=== PATIENT | male | born 1960 | race Caucasian/White ===

== ENCOUNTER 2016-04-10 21:56 | Observation (INO) | payer OTHER ==
[~2016-04-10] VITALS: Ht 157.5 cm; Wt 65.0 kg
[2016-04-10 21:58] VITALS: BP 131/66; PULSE 70; RESP 16; TEMP 98.8; O2SAT 98
[2016-04-10] MEDS ORDERED: SODIUM CHLOR 0.9% 1000 ML INJ 1,000 ML IV SCH (22:10)
[2016-04-10] MEDS ORDERED: ONDANSETRON HCL 4 MG/2 ML VIAL IVP ONE (22:15)
[2016-04-10] MEDS ORDERED: SODIUM CHLORIDE 0.9% FLUSH 5 ML FLUSH IVF PRN (22:15)
[2016-04-10 22:37] LABS: AUTOMATED NEUTROPHIL # 4.1 TH/MM3 (1.8-7.7); BASOPHIL % 0.3 % (0.0-2.0); EOSINOPHIL % 0.4 % (0.0-4.0); HEMATOCRIT 37.8 % (39.0-51.0); HEMO FLAGS DIFF FINAL; LYMPH % 25.2 % (9.0-44.0); LYMPHOCYTE # 1.8 TH/MM3 (1.0-4.8); MEAN CELL VOLUME 99.4 FL (80.0-100.0); MEAN CORPUSCULAR HEMOGLOBIN 33.9 PG (27.0-34.0); MEAN CORPUSCULAR HGB CONC 34.1 % (32.0-36.0); MONO % 16.1 % (0.0-8.0); PLATELET COUNT 155 TH/MM3 (150-450); RED BLOOD COUNT 3.81 MIL/MM3 (4.50-5.90); RED CELL DISTRIBUTION WIDTH 14.7 % (11.6-17.2)
--- NOTE | 2016-04-10 22:50 | PD ---
HPI Chief Complaint: Fall Time Seen by Provider: 22:10 Travel History International Travel<30 days: No Contact w/Intl Traveler<30days: No Traveled to known affect area: No History of Present Illness HPI 56-year-old male presents to the emergency department from home by EMS transport with C-spine immobilization after a slip and fall while working on Thursday on top of a roof. Patient fell on top of the roof and did not fall off of the roof. Patient states injury occurred approximately 8 AM on Thursday morning. Patient was able to work the rest the day and was ambulatory with some neck and low back pain. Patient states that he was able to perform his activities of daily living on Thursday but upon awakening on Thursday noticed that he had too much pain to move around. Patient has been bedbound since Thursday. Patient is been taking [id number] ibuprofen for pain associated with inflammation. Son has been rubbing BenGay onto his back. Patient's had normal urine output but has not been able to get up out of bed to go to the bathroom to have a bowel movement. Patient has had no bowel incontinence. Patient does note that intermittently he's had some tingling into the thumb and index finger of both hands. Patient also notes that he has no numbness tingling or weakness into his lower extremities but does have some pain radiating into his lower extremities. Patient denies any previous history of neck or back injury. Patient has no chronic medical conditions and takes no prescription medications on a regular basis. Patient does admit to tobacco use and occasionally drinks alcohol on the weekends. Patient states he does not believe he had loss of consciousness has had no ongoing headache no visual disturbance no change in mentation or difficulty with speech or swallowing has been taking oral hydration and eating well no chest pain no rib pain no shortness of breath no abdominal pain no pelvic pain. Patient rates neck pain and back pain with attempted movement 10 over 10 in intensity which is now 6/10 in intensity after receiving morphine sulfate 2 mg IV en route by EMS. [facility] Past Medical History Narrative Medical Negative past medical history, negative surgical history; positive tobacco use occasional alcohol use; nursing notes reviewed Social History Alcohol Use: Yes Tobacco Use: Yes Allergies-Medications (Allergen,Severity, Reaction): Coded Allergies: Seafood (Verified Allergy, Severe, 04/10/16) Reported Meds & Prescriptions Reported Meds & Active Scripts Active Narrative Medication Motrin as needed Review of Systems Except as stated in HPI: all other systems reviewed are Neg General / Constitutional: No: Fever, Chills Eyes: No: Visual changes HENT: Positive: Neck Pain, No: Headaches Cardiovascular: No: Chest Pain or Discomfort Respiratory: No: Shortness of Breath Gastrointestinal: No: Nausea, Vomiting, Abdominal Pain Genitourinary: No: Dysuria, Decreased Urinary Output, Dribbling, Incontinence, Pelvic Pain Musculoskeletal: Positive: Myalgias, Arthralgias, Limited ROM, Pain (neck pain low back pain) Skin: No Rash Neurologic: Positive: Paresthesia (bilateral thumb and index fingers intermittently), No: Weakness, Dizziness, Syncope, Focal Abnormalities, Coordination Problem, Headache, Change in Mentation, Slurred Speech, Incontinence Psychiatric: No: Anxiety Hematologic/Lymphatic: No: Easy Bruising Physical Exam Narrative GENERAL: Well-developed well-nourished male in no acute distress no respiratory distress; GCS 15 SKIN: Warm and dry. HEAD: Atraumatic. Normocephalic. No scalp soft tissue swelling no abrasion or laceration no bony abnormalities. EYES: Pupils equal and round. Extraocular muscles intact. No scleral icterus. No injection or drainage. ENT: No nasal bleeding or discharge. Mucous membranes pink and moist. No hemotympanum. NECK: Trachea midline. No JVD. Cervical collar in place mild tenderness to direct palpation along the cervical spine without bony step-off. CARDIOVASCULAR: Regular rate and rhythm. Radial and dorsalis pedis pulses 2+ to palpation. Chest wall: Nontender to direct palpation no ecchymosis or abrasion. RESPIRATORY: No accessory muscle use. Clear to auscultation. Breath sounds equal bilaterally. GASTROINTESTINAL: Abdomen soft, non-tender, nondistended. Hepatic and splenic margins not palpable. MUSCULOSKELETAL: Extremities without clubbing, cyanosis, or edema. No obvious deformities. Spine immobilization maintained patient was log rolled and direct palpation along the thoracic spine nontender no bony step-off with direct palpation along the thoracic spine patient notes tenderness to palpation lower midline but no bony step-off. Rectal exam performed: Normal sphincter tone NEUROLOGICAL: Awake and alert. No obvious cranial nerve deficits. Motor grossly within normal limits. Five out of 5 muscle strength in the arms and legs. DTRs 2+ and equal bilateral upper extremities and lower extremities no clonus. Sensory exam intact except for decreased sensation in the C6 and C7 dermatomal distribution bilateral hands attention to thumbs and index fingers and to a lesser extent middle fingers. Normal speech. PSYCHIATRIC: Appropriate mood and affect; insight and judgment normal. Data Data Last Documented VS Orders Basic Metabolic Panel (Bmp) (04/10/16 22:10) Complete Blood Count With Diff (04/10/16 22:10) Prothrombin Time / Inr (Pt) (04/10/16 22:10) Act Partial Throm Time (Ptt) (04/10/16 22:10) Type And Screen (04/10/16 22:10) Urinalysis - C+S If Indicated (04/10/16 22:10) Ct Brain W/O Iv Contrast(Rout) (04/10/16 22:10) Ct Cerv Spine W/O Contrast (04/10/16 22:10) Ct Thor Spine W/O Contrast (04/10/16 22:10) Ct Lumb Spine W/O Contrast (04/10/16 22:10) Iv Access Insert/Monitor (04/10/16 22:10) Ecg Monitoring (04/10/16 22:10) Oximetry (04/10/16 22:10) Oxygen Administration (04/10/16 22:10) Ondansetron Inj (Zofran Inj) (04/10/16 22:15) Sodium Chlor 0.9% 1000 Ml Inj (Ns 1000 M (04/10/16 22:10) Sodium Chloride 0.9% Flush (Ns Flush) (04/10/16 22:15) Mri C Spine W/O Contrast (04/11/16 ) Hydromorphone Pf Inj (Dilaudid Pf Inj) (04/11/16 00:15) Ketorolac Inj (Toradol Inj) (04/11/16 00:15) Ondansetron Inj (Zofran Inj) (04/11/16 00:15) Mri L Spine W/O Contrast (04/11/16 ) Place In Observation (04/11/16 ) Vital Signs (Adult) Q4H (04/11/16 03:17) Sodium Chloride 0.9% Flush (Ns Flush) (04/11/16 03:30) Sodium Chloride 0.9% Flush (Ns Flush) (04/11/16 09:00) Case Management Consult (04/11/16 03:17) Scd Bilateral/Knee High FER.BID (04/11/16 03:17) Naloxone Inj (Narcan Inj) (04/11/16 03:30) Hydromorphone Pf Inj (Dilaudid Pf Inj) (04/11/16 03:30) Consult Neurosurgery (04/11/16 ) Admit Order (Ed Use Only) (04/11/16 ) ^ Saline Lock (04/11/16 03:19) Resp Oxygen Silvano C Titrat 1-4 L (04/11/16 ) ^ Notify Dr: Other (04/11/16 03:19) Sodium Chloride 0.9% Flush (Ns Flush) (04/11/16 09:00) Sodium Chloride 0.9% Flush (Ns Flush) (04/11/16 03:30) Labs MDM Medical Decision Making Medical Screen Exam Complete: Yes Emergency Medical Condition: Yes Medical Record Reviewed: Yes Interpretation(s) CBC & BMP Diagram 04/10/16 22:16 04/10/16 23:14 Vital Signs Date Time Temp Pulse Resp B/P Pulse Ox O2 Delivery O2 Flow Rate FiO2 04/10/16 23:02 68 18 122/66 97 Room Air 04/10/16 21:58 98.8 70 16 131/66 98 UA: wnl Last Impressions Lumbar Spine MRI 04/11/16 0000 Signed Impressions: Service Date/Time: Monday, April 11, 2016 01:44 - CONCLUSION: Multilevel mild disc disease. Acute appearing disc protrusion/extrusion at L5-S1 as described. Chavez Bocanegra MD Cervical Spine MRI 04/11/16 0000 Signed Impressions: Service Date/Time: Monday, April 11, 2016 01:44 - CONCLUSION: No acute bony findings. Disc protrusions at multiple levels with most significant anatomic compromise at C4-5 where moderate canal stenosis is present. Chavez Bocanegra MD Thoracic Spine CT 04/10/162209 Signed Impressions: Service Date/Time: April 22:43 - CONCLUSION: No acute bony injury in the thoracic spine Chavez Bocanegra MD Lumbar Spine CT 04/10/162209 Signed Impressions: Service Date/Time: April 22:49 - CONCLUSION: No acute bony injury in the lumbosacral spine Chavez Bocanegra MD Head CT 04/10/162209 Signed Impressions: Service Date/Time: April 22:37 - CONCLUSION: Unremarkable study except for completely opacified left maxillary sinus. Ant Root MD Cervical Spine CT 04/10/162209 Signed Impressions: Service Date/Time: April 22:37 - CONCLUSION: No acute bony injury in the cervical spine Chavez Bocanegra MD Differential Diagnosis Mechanical fall minor CHI, ICH spine fracture, contusion, cord compression Narrative Course Patient placed on monitoring tech IV access obtained patient With spinal immobilization and imaging studies ordered CT cervical spine thoracic spine and lumbar spine shows degenerative changes but no acute fracture or disc space narrowing at C6 7 as well as mild spinal listhesis L5-S1; patient complains of increased pain to the lower back; cervical collar removed by me Case discussed with neurosurgery with recommendation for MR while in the ER; imaging studies ordered patient administered additional pain medication Dilaudid 1 mg IV along with Toradol 30 mg IV Patient with multilevel disc disease affecting the cervical spine and specific disc disease affecting the lumbar spine at the L5-S1 distribution without lower extremity numbness tingling or weakness however range of motion does increase pain patient has no bladder or bowel dysfunction normal deep tendon reflexes and sensory exam and motor strength. However in view of injury abnormal MR and ongoing pain will admit for intractable pain patient's case has been discussed earlier with on-call neurosurgeon with recommendation for outpatient clinic management if no acute findings on imaging. Physician Communication Physician Communication case discussed with DELVIN Parsons; case discussed with [facility] Diagnosis Primary Impression: Intractable back pain Additional Impressions: Lumbar disc herniation Cervical disc disorder with radiculopathy Admitting Information Admitting Physician Requests: Observation Scripts Naproxen 500 Mg [id number] Mg PO BID #28 TAB Ref 0 Always take with food. Prov:Latha Leonard PA-C 04/12/16 Gabapentin (Neurontin)400 Mg [id number] Mg PO BID #60 CAP Prov:Latha Leonard PA-C 04/12/16 Thiamine (Vitamin B-1)100 Mg [id number] Mg PO DAILY #30 TAB Prov:Nisa Osborne MD 04/12/16 Hydrocodone-Acetaminophen 7.5-325 mg Tab1 Tab PO Q4H PRN (PAIN SCALE 6 TO 10) # 60 TAB Prov:Nisa Osborne MD 04/12/16 Cyclobenzaprine (Flexeril)10 Mg Tab10 Mg PO Q8H PRN (muscle spasms) #90 TAB Prov:Nisa Osborne MD 04/12/16 Judi Braun MD Apr 10, 2016 22:50 Date Time Temp Pulse Resp B/P Pulse Ox O2 Delivery O2 Flow Rate FiO2 04/10/16 23:02 68 18 122/66 97 Room Air 04/10/16 21:58 98.8 70 16 131/66 98 UA: wnl Last Impressions Lumbar Spine MRI 04/11/16 0000 Signed Impressions: Service Date/Time: Monday, April 11, 2016 01:44 - CONCLUSION: Multilevel mild disc disease. Acute appearing disc protrusion/extrusion at L5-S1 as described. Chavez Bocanegra MD Cervical Spine MRI 04/11/16 0000 Signed Impressions: Service Date/Time: Monday, April 11, 2016 01:44 - CONCLUSION: No acute bony findings. Disc protrusions at multiple levels with most significant anatomic compromise at C4-5 where moderate canal stenosis is present. Chavez Bocanegra MD Thoracic Spine CT 04/10/162209 Signed Impressions: Service Date/Time: April 22:43 - CONCLUSION: No acute bony injury in the thoracic spine Chavez Bocanegra MD Lumbar Spine CT 04/10/162209 Signed Impressions: Service Date/Time: April 22:49 - CONCLUSION: No acute bony injury in the lumbosacral spine Chavez Bocanegra MD Head CT 04/10/162209 Signed Impressions: Service Date/Time: April 22:37 - CONCLUSION: Unremarkable study except for completely opacified left maxillary sinus. Ant Root MD Cervical Spine CT 04/10/162209 Signed Impressions: Service Date/Time: April 22:37 - CONCLUSION: No acute bony injury in the cervical spine Chavez Bocanegra MD Differential Diagnosis Mechanical fall minor CHI, ICH spine fracture, contusion, cord compression Narrative Course Patient placed on monitoring tech IV access obtained patient With spinal immobilization and imaging studies ordered CT cervical spine thoracic spine and lumbar spine shows degenerative changes but no acute fracture or disc space narrowing at C6 7 as well as mild spinal listhesis L5-S1; patient complains of increased pain to the lower back; cervical collar removed by me Case discussed with neurosurgery with recommendation for MR while in the ER; imaging studies ordered patient administered additional pain medication Dilaudid 1 mg IV along with Toradol 30 mg IV Patient with multilevel disc disease affecting the cervical spine and specific disc disease affecting the lumbar spine at the L5-S1 distribution without lower extremity numbness tingling or weakness however range of motion does increase pain patient has no bladder or bowel dysfunction normal deep tendon reflexes and sensory exam and motor strength. However in view of injury abnormal MR and ongoing pain will admit for intractable pain patient's case has been discussed earlier with on-call neurosurgeon with recommendation for outpatient clinic management if no acute findings on imaging. Physician Communication Physician Communication case discussed with DELVIN Parsons; case discussed with [facility] Diagnosis Primary Impression: Intractable back pain Additional Impressions: Lumbar disc herniation Cervical disc disorder with radiculopathy Scripts No Active Prescriptions or Reported Meds Judi Braun MD Apr 10, 2016 22:50
--- NOTE | 2016-04-10 22:51 | RADRPT ---
EXAM DATE/TIME: 04/10/2016 22:37 [facility] COMPARISON: No previous studies available for comparison. INDICATIONS : Status post fall on Thursday. Head pain . RADIATION DOSE: 56.35 CTDIvol (mGy) MEDICAL HISTORY : None SURGICAL HISTORY : None. ENCOUNTER: Initial ACUITY: 4 - 6 days PAIN SCALE: 8/10 LOCATION: cranial TECHNIQUE: Multiple contiguous axial images were obtained of the head. Using automated exposure control and adjustment of the mA and/or kV according to patient size, radiation dose was kept as low as reasonably achievable to obtain optimal diagnostic quality images. FINDINGS: There is no evidence for intracranial hemorrhage, mass effect, mass lesions, edema, or extra-axial fl uid collections. The visualized bony structures appear intact. The ventricles are normal size for t he patient's age. There are no signs of acute infarction for technique. There is complete opacificat ion of the left maxillary sinus. CONCLUSION: Unremarkable study except for completely opacified left maxillary sinus. Ant Root MD on April 10, 2016 at 22:48 Board Certified Radiologist. This report was verified electronically.
[2016-04-10 23:02] VITALS: BP 122/66; PULSE 68; RESP 18; O2SAT 97
[2016-04-10 23:02] LABS: APTT (PATIENT) 32.4 SEC (24.3-30.1); PROTHROMBIN TIME - PATIENT 11.3 SEC (9.8-11.6)
--- NOTE | 2016-04-10 23:31 | RADRPT ---
EXAM DATE/TIME: 04/10/2016 22:43 [facility] COMPARISON: No previous studies available for comparison. INDICATIONS : Status post fall from Thursday, extreme back pain. RADIATION DOSE: 14.31 CTDIvol (mGy) MEDICAL HISTORY : None SURGICAL HISTORY : None. ENCOUNTER: Initial ACUITY: 4 - 6 days PAIN SCALE: 8/10 LOCATION: Paraspinal TECHNIQUE: Volumetric scanning of the thoracic spine was performed. Multiplanar reconstructions in the sagittal , coronal and oblique axial planes were performed. Using automated exposure control and adjustment o f the mA and/or kV according to patient size, radiation dose was kept as low as reasonably achievable to obtain optimal diagnostic quality images. FINDINGS: The alignment is normal. There is no evidence of fracture. There are degenerative changes present thr oughout with ventral endplate osteophytes most prominent in the mid to lower thoracic spine and fairl y severe posterior facet arthropathy in particular at T2-3 where moderately prominent foraminal osteo phytes are present right worse the left. No evidence of bony canal stenosis. There is no evidence of paraspinal hematoma. CONCLUSION: No acute bony injury in the thoracic spine Chavez Bocanegra MD on April 10, 2016 at 23:24 Board Certified Radiologist. This report was verified electronically.
--- NOTE | 2016-04-10 23:34 | RADRPT ---
EXAM DATE/TIME: 04/10/2016 22:49 [facility] COMPARISON: No previous studies available for comparison. INDICATIONS : Status post fall from Thursday. Severe back pain RADIATION DOSE: 14.31 CTDIvol (mGy) ; Combined studies MEDICAL HISTORY : None SURGICAL HISTORY : None. ENCOUNTER: Initial ACUITY: 4 - 6 days PAIN SCALE: 8/10 LOCATION: Paraspinal TECHNIQUE: Volumetric scanning of the lumbar spine was performed. Multiplanar reconstructions in the sagittal, coronal and oblique axial planes were performed. Using automated exposure control and adjustment of the mA and/or kV according to patient size, radiation dose was kept as low as reasonably achievable t o obtain optimal diagnostic quality images. FINDINGS: There is slight retrolisthesis of L5 relative to S1. Alignment is otherwise normal. There is no evide nce of fracture. There are degenerative changes throughout with disc space loss most significantly at L3-4 where partial fusion is present across the disc space. Small endplate osteophytes are present t hroughout. Posterior facet arthropathy is present most significantly at the lumbosacral junction. The re is no evidence of bony canal compromise. No evidence of paraspinal hematoma. CONCLUSION: No acute bony injury in the lumbosacral spine Chavez Bocanegra MD on April 10, 2016 at 23:30 Board Certified Radiologist. This report was verified electronically.
--- NOTE | 2016-04-10 23:38 | RADRPT ---
EXAM DATE/TIME: 04/10/2016 22:37 [facility] COMPARISON: No previous studies available for comparison. INDICATIONS : Status post fall from Thursday. Neck pain RADIATION DOSE: 35.24 CTDIvol (mGy) MEDICAL HISTORY : None SURGICAL HISTORY : None. ENCOUNTER: Initial ACUITY: 4 - 6 days PAIN SCALE: 8/10 LOCATION: neck TECHNIQUE: Volumetric scanning of the cervical spine was performed. Multiplanar reconstructions in the sagittal, coronal and oblique axial planes were performed. Using automated exposure control and adjustment o f the mA and/or kV according to patient size, radiation dose was kept as low as reasonably achievable to obtain optimal diagnostic quality images. FINDINGS: Cervical spine alignment is satisfactory. There is no evidence of cervical spine fracture. There are degenerative changes present throughout with disc space narrowing most significant weighted C6-7. Sma ll endplate osteophytes are present. No significant bony canal compromise. Broad disc protrusions mingo ear to be present at the C3-4, C4-5 C5-6 levels. Posterior facet arthropathy is present at multiple l evels, mainly on the right. There is no evidence of paraspinal hematoma CONCLUSION: No acute bony injury in the cervical spine Chavez Bocanegra MD on April 10, 2016 at 23:33 Board Certified Radiologist. This report was verified electronically.
[2016-04-10 23:47] LABS: BICARBONATE 24.9 MEQ/L (21.0-32.0); POTASSIUM 3.6 MEQ/L (3.5-5.1)
[2016-04-11] VITALS (11 sets, daily range): BP systolic 108–128; BP diastolic 61–79; PULSE 48–77; RESP 15–20; TEMP 98–99.7; O2SAT 94–98
[2016-04-11] MEDS ORDERED: KETOROLAC TROMETHAMINE 30 MG/ML (IVP) VIAL IV PUSH ONE (00:15)
[2016-04-11] MEDS ORDERED: HYDROmorphone HCL PF 1 MG/ML VIAL IV PUSH ONE (00:15)
[2016-04-11] MEDS ORDERED: ONDANSETRON HCL 4 MG/2 ML VIAL IV PUSH ONE (00:15)
[2016-04-11 00:42] LABS: BLOOD, URINE NEG (NEG); GLUCOSE,URINE NEG (NEG); KETONE, URINE NEG (NEG); NITRITE,URINE NEG (NEG); SQUAMOUS EPITHELIAL CELL URINE <1 /hpf (0-5); URINE COLOR YELLOW (YELLW/STRAW)
[2016-04-11 00:49] LABS: COMMENT (UR) CULT NOT INDICATED; CULTURE IF INDICATED CULT NOT INDICATED
--- NOTE | 2016-04-11 02:25 | RADRPT ---
EXAM DATE/TIME: 04/11/2016 01:44 [facility] COMPARISON: No previous studies available for comparison. INDICATIONS : Pain. Neck pain and bilateral hand numbness since fall from roof 04/10/16 MEDICAL HISTORY : None. SURGICAL HISTORY : None. ENCOUNTER: Initial ACUITY: 2 day PAIN SCORE: 8/10 LOCATION: neck TECHNIQUE: Multiplanar, multisequence MRI examination of the cervical spine was performed. FINDINGS: VERTEBRAE: Normal vertebral body height. Homogeneous marrow signal. ALIGNMENT: No evidence of subluxation. CORD: Normal configuration and signal. POST FOSSA: The cerebellar tonsils are normal in position. C2-C3: The thecal sac has a normal configuration. There is no evidence of disc herniation or spinal canal s tenosis. The neural foramina are patent bilaterally. C3-C4: The thecal sac has a normal configuration. There is no evidence of disc herniation or spinal canal s tenosis. The neural foramina are patent bilaterally. C4-C5: Broad mild dorsal disc protrusion with superimposed dorsal ligamentous hypertrophy contributing to mo derate concentric canal stenosis with complete or near-complete obliteration of CSF signal both dorsa lly and ventrally. Mild asymmetrically right-sided foraminal stenosis. C5-C6: Slight broad dorsal disc protrusion, minimally eccentric to the left with mild superimposed dorsal li gamentous hypertrophy contributing to mild canal stenosis. Mild asymmetrically right-sided foraminal stenosis. C6-C7: Slight broad dorsal disc protrusion with slight dorsal ligamentous hypertrophy contributing to modera te concentric canal stenosis. Foramina appear adequate. C7-T1: The thecal sac has a normal configuration. There is no evidence of disc herniation or spinal canal s tenosis. The neural foramina are patent bilaterally. CONCLUSION: No acute bony findings. Disc protrusions at multiple levels with most significant anatomic compromise at C4-5 where moderate canal stenosis is present. Chavez Bocanegra MD on April 11, 2016 at 2:17 Board Certified Radiologist. This report was verified electronically.
--- NOTE | 2016-04-11 02:45 | RADRPT ---
EXAM DATE/TIME: 04/11/2016 01:44 [facility] COMPARISON: CT LUMBAR SPINE W/O CONTRAST, April 10, 2016, 22:49. INDICATIONS : Pain. Lower back pain from fall from roof 04/10/16 MEDICAL HISTORY : None. SURGICAL HISTORY : None. ENCOUNTER: Initial ACUITY: 2 day PAIN SCORE: 8/10 LOCATION: Lumbar TECHNIQUE: Multiplanar multisequence MRI of the lumbar spine was performed without contrast. FINDINGS: The most caudal appearing lumbar vertebra is numbered as L5. VERTEBRAE: Slight retrolisthesis of L5 relative to S1. Mild degenerative-type marrow signal changes most notably adjacent L5-S1. CONUS: Normal level and configuration. T12-L1: Minimal annular disc bulge and slight broad superimposed dorsal disc protrusion minimally indenting t hecal sac. No canal or foraminal compromise. L1-L2: Annular disc bulge with mild broad undulating dorsal disc protrusion mildly indenting the ventral the ashlee sac. Canal and foramina appear adequate. L2-L3: Slight annular disc bulge. No significant canal or foraminal compromise. L3-L4: The thecal sac has a normal diameter. No evidence of disc bulge or protrusion. The neural foramina are patent bilaterally. L4-L5: Mild annular disc bulge with minimal broad superimposed dorsal protrusion. Mild dorsal ligamentous hy pertrophy. Canal and foramina are adequate. L5-S1: Significant disc degeneration. Broad mild dorsal disc protrusion with superimposed focal acute appear ing protrusion/extrusion extending into the left lateral recess. This abuts and displaces the proxima l left S1 nerve root. There is mild bilateral L5 foraminal narrowing. There is mild asymmetrically ri ght-sided posterior facet arthropathy. CONCLUSION: Multilevel mild disc disease. Acute appearing disc protrusion/extrusion at L5-S1 as described. Chavez Bocanegra MD on April 11, 2016 at 2:24 Board Certified Radiologist. This report was verified electronically.
[2016-04-11] MEDS: HYDROmorphone HCL PF 1 MG/ML VIAL IV PUSH PRN ×3 (03:27→10:41)
[2016-04-11] MEDS ORDERED: NALOXONE HCL 0.4 MG/ML AMP IV PRN (03:30)
[2016-04-11] MEDS ORDERED: SODIUM CHLORIDE 0.9% FLUSH 5 ML FLUSH FLUSH PRN (03:30)
[2016-04-11] MEDS ORDERED: SODIUM CHLORIDE 0.9% FLUSH 5 ML FLUSH IVF PRN (03:30)
[2016-04-11] MEDS ORDERED: SODIUM CHLORIDE 0.9% FLUSH 5 ML FLUSH IVF SCH (09:00)
[2016-04-11] MEDS: SODIUM CHLORIDE 0.9% FLUSH 5 ML FLUSH FLUSH SCH ×2 (10:41→21:42)
--- NOTE | 2016-04-11 10:55 | HHI.HP ---
[facility] Primary Care Physician No Primary Care Physician Admission Diagnosis intractable painl cervical C6/7 lumbar L5/S1 disc disease/protrusion Diagnoses: Chief Complaint: back pain, fall Travel History International Travel<30 Days: No Contact w/Intl Traveler <30 Da: No Traveled to Known Affected Are: No History of Present Illness 56-year-old male with no significant past medical history presents after a fall Thursday04/07/16 with intractable low back pain. The patient reports he was working on top of a roof when he slipped and fell, landing directly on his buttocks/low back, did not fall off the roof. Denies hitting his head or any loss of consciousness. His son was able to help him to his feet and he continued to work that day but the pain worsened. The next morning he woke up with intractable low back pain with radiation down bilateral buttocks to the toes, rated 10/10, no associated numbness/tingling/weakness or urinary/bowel incontinence. He states he was unable to ambulate. He stayed in bed most the day. He has been taking ibuprofen with minimal relief. Denies neck pain, but does report chronic bilateral hand numbness involving 1st, 2nd, 3rd digits. He states he has arthritis in his hands and has had numbness for a long time. He has no other medical complaints at this time. Review of Systems Constitutional: DENIES: Diaphoretic episodes, Fever, Chills, Dizziness Endocrine: DENIES: Polydipsia, Polyuria Eyes: DENIES: Blurred vision, Vision loss, Double Vision Ears, nose, mouth, throat: DENIES: Throat pain, Running Nose, Odynophagia Respiratory: DENIES: Cough, Shortness of breath Cardiovascular: DENIES: Chest pain, Palpitations, Dyspnea on Exertion, Lower Extremity Edema Gastrointestinal: DENIES: Abdominal pain, Constipation, Diarrhea, Nausea, Vomiting Genitourinary: DENIES: Urinary incontinence, Urgency, Dysuria Musculoskeletal: COMPLAINS OF: Back pain, DENIES: Joint pain, Neck pain Integumentary: DENIES: Pruritus, Rash Hematologic/lymphatic: DENIES: Bruising, Lymphadenopathy Immunologic/allergic: DENIES: Eczema, Urticaria Neurologic: DENIES: Abnormal gait, Headache, Localized weakness Psychiatric: DENIES: Anxiety, Depression Past Family Social History Past Medical History Denies any significant PMH. Past Surgical History Cholecystectomy Left knee arthroscopy Reported Medications Recently using Motrin as needed. Allergies: Coded Allergies: Seafood (Verified Allergy, Severe, 04/10/16) Active Ordered Medications Current Medications Medications (Trade) Dose Ordered Sig/Luis Daniel Route Start Time Stop Time Status Last Admin (NS Flush) 2 ml UNSCH PRN FLUSH 04/11/16 03:30 (NS Flush) 2 ml BID FLUSH 04/11/16 09:00 (Narcan Inj) 0.4 mg UNSCH PRN IV 04/11/16 03:30 (Dilaudid Pf Inj) 0.2 mg Q4H PRN IV PUSH 04/11/16 03:30 04/11/16 06:53 Family History Mother with CVA, Father with liver cancer, Social History Smokes tobacco only when he drinks, 1 PPD on Fridays and Saturdays Binge drinks alcohol on the weekends, 12+ beers on Fridays and Saturdays only Denies any illicit drug use Physical Exam Vital Signs Vital Signs Date Time Temp Pulse Resp B/P Pulse Ox O2 Delivery O2 Flow Rate FiO2 04/11/16 08:19 99.1 67 16 112/67 94 04/11/16 05:34 48 04/11/16 03:28 97 04/11/16 03:00 62 15 128/79 98 Room Air 04/10/16 23:02 68 18 122/66 97 Room Air 04/10/16 21:58 98.8 70 16 131/66 98 Physical Exam GENERAL: Well-nourished, well-developed middle aged physically fit male patient in [facility]. SKIN: Warm and dry. No rash. HEAD: Normocephalic. Atraumatic. EYES: Pupils equal and round. No scleral icterus. No injection or drainage. ENT: No nasal bleeding or discharge. Mucous membranes pink and moist. NECK: Supple. Trachea midline. CARDIOVASCULAR: Regular rate and rhythm. S1, S2 noted. No murmur appreciated. RESPIRATORY: No accessory muscle use. Clear to auscultation. Breath sounds equal bilaterally. GASTROINTESTINAL: Abdomen soft, non-tender, nondistended. Normoactive bowel sounds x4. MUSCULOSKELETAL: No obvious deformities. Extremities without clubbing, cyanosis , or edema. Positive straight leg raise bilaterally. Diffuse lumbar bony point and paraspinous muscle tenderness to palpation. NEUROLOGICAL: Awake and alert. No obvious cranial nerve deficits. Motor grossly within normal limits. 5/5 muscle strength in bilateral upper and lower extremities. Distal lower extremity sensation equal and intact. Normal speech. PSYCHIATRIC: Appropriate mood and affect; insight and judgment normal. Laboratory Laboratory Tests Test 04/10/16 04/10/16 04/11/16 22:16 23:14 00:15 White Blood Count 7.0 Red Blood Count 3.81 Hemoglobin 12.9 Hematocrit 37.8 Mean Corpuscular Volume 99.4 Mean Corpuscular Hemoglobin 33.9 Mean Corpuscular Hemoglobin 34.1 Concent Red Cell Distribution Width 14.7 Platelet Count 155 Mean Platelet Volume 8.9 Neutrophils (%) (Auto) 58.0 Lymphocytes (%) (Auto) 25.2 Monocytes (%) (Auto) 16.1 Eosinophils (%) (Auto) 0.4 Basophils (%) (Auto) 0.3 Neutrophils # (Auto) 4.1 Lymphocytes # (Auto) 1.8 Monocytes # (Auto) 1.1 Eosinophils # (Auto) 0.0 Basophils # (Auto) 0.0 CBC Comment DIFF FINAL Differential Comment Prothrombin Time 11.3 Prothromb Time International 1.0 Ratio Activated Partial 32.4 Thromboplast Time Blood Type O POSITIVE Antibody Screen NEGATIVE Blood Bank Comment Sodium Level 141 Potassium Level 3.6 Chloride Level 109 Carbon Dioxide Level 24.9 Anion Gap 7 Blood Urea Nitrogen 11 Creatinine 0.68 Estimat Glomerular Filtration 121 Rate Random Glucose 92 Calcium Level 7.6 Urine Color YELLOW Urine Turbidity CLEAR Urine pH 7.0 Urine Specific [place] 1.011 Urine Protein NEG Urine Glucose (UA) NEG Urine Ketones NEG Urine Occult Blood NEG Urine Nitrite NEG Urine Bilirubin NEG Urine Urobilinogen LESS THAN 2.0 Urine Leukocyte Esterase NEG Urine RBC LESS THAN 1 Urine WBC 1 Urine Squamous Epithelial <1 Cells Microscopic Urinalysis Comment CULT NOT INDICATED Result Diagram: 04/10/16 2216 04/10/16 2314 Imaging Last Impressions Lumbar Spine MRI 04/11/16 0000 Signed Impressions: Service Date/Time: Monday, April 11, 2016 01:44 - CONCLUSION: Multilevel mild disc disease. Acute appearing disc protrusion/extrusion at L5-S1 as described. Chavez Bocanegra MD Cervical Spine MRI 04/11/16 0000 Signed Impressions: Service Date/Time: Monday, April 11, 2016 01:44 - CONCLUSION: No acute bony findings. Disc protrusions at multiple levels with most significant anatomic compromise at C4-5 where moderate canal stenosis is present. Chavez Bocanegra MD Thoracic Spine CT 04/10/162209 Signed Impressions: Service Date/Time: April 22:43 - CONCLUSION: No acute bony injury in the thoracic spine Chavez Bocanegra MD Lumbar Spine CT 04/10/162209 Signed Impressions: Service Date/Time: April 22:49 - CONCLUSION: No acute bony injury in the lumbosacral spine Chavez Bocanegra MD Head CT 04/10/162209 Signed Impressions: Service Date/Time: April 22:37 - CONCLUSION: Unremarkable study except for completely opacified left maxillary sinus. Ant Root MD Cervical Spine CT 04/10/162209 Signed Impressions: Service Date/Time: April 22:37 - CONCLUSION: No acute bony injury in the cervical spine Chavez Bocangera MD Assessment and Plan Problem List: (1) Lumbar disc herniation ICD Code: M51.26 Status: Acute (2) Intractable back pain ICD Code: M54.9 Status: Acute Assessment and Plan 56-year-old male with no significant past medical history presents after a fall Thursday04/07/16 with intractable low back pain and inability to ambulate Acute Lumbar Disc Protrusion with Radiculopathy: s/p fall with intractable pain , inability to ambulate. Following images reviewed by me: -CT thoracic/lumbar spine with no acute bony injury in the thoracic or lumbosacral spine. -MRI Cervical spine with no acute bony findings, shows disc protrusion at multiple levels with most significant anatomic compromise at C4-5 where moderate canal stenosis is present. -MRI Lumbar spine with multilevel mild disc disease; acute appearing disc protrusion/extrusion at L5-S1. -Continue pain control with [place] prn pain scale, IV dilaudid 0.5mg prn breakthrough pain -Scheduled IV Toradol 15mg q6h x5days -Flexeril 10mg q8h prn muscle spasms -Consult neurosurgery Tobacco/Alcohol Use: counseled on cessation. No signs of withdrawal, only drinks 2x per week. -Nicotine patch prn. -Start on thiamine/folate/MV. DVT Prophylaxis: teds/SCDs Discussed with Dr. Osborne Code Status Full Code Discussed Condition With Patient, RN, Latha Conde PA-C Apr 11, 2016 10:54
[2016-04-11] MEDS ORDERED: ONDANSETRON HCL 4 MG/2 ML VIAL IVP PRN (11:30)
[2016-04-11] MEDS ORDERED: ACETAMINOPHEN/HYDROcodone 325 MG/5 MG TAB PO PRN (11:30)
[2016-04-11] MEDS ORDERED: MAGNESIUM HYDROXIDE SUSP 30 ML CUP PO PRN (11:30)
[2016-04-11] MEDS ORDERED: ACETAMINOPHEN 325 MG TAB PO PRN (11:30)
[2016-04-11] MEDS ORDERED: HYDROmorphone HCL PF 1 MG/ML VIAL IV PRN (11:30)
[2016-04-11] MEDS ORDERED: NICOTINE 14 MG/24 HR PATCH TD PRN (12:00)
[2016-04-11] MEDS: KETOROLAC TROMETHAMINE 30 MG/ML (IVP) VIAL IV PUSH SCH ×2 (13:24→17:33)
[2016-04-11] MEDS: CYCLOBENZAPRINE HCL 10 MG TAB PO PRN (15:30)
[2016-04-11] MEDS: ACETAMINOPHEN/HYDROcodone 325 MG/7.5 MG TAB PO PRN (15:30)
--- NOTE | 2016-04-11 20:03 | PD.CONS ---
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 The pain is so severe that he has difficulty sitting or walking. MRI of the cervical and lumbar spine showed trauma at C6 and L5S1. He is now on toradol and improving. Review of Systems Constitutional: DENIES: Diaphoretic episodes, Fatigue, Fever, Weight gain, Weight loss, Chills, Dizziness, Change in appetite, Night Sweats Ears, nose, mouth, throat: DENIES: Tinnitus, Hearing loss, Vertigo, Nasal discharge, Oral lesions, Throat pain, Hoarseness, Ear Pain, Running Nose, Epistaxis, Sinus Pain, Toothache, Odynophagia Respiratory: DENIES: Apneas, Cough, Snoring, Wheezing, Hemoptysis, Sputum production, Shortness of breath Cardiovascular: DENIES: Chest pain, Palpitations, Syncope, Dyspnea on Exertion , PND, Lower Extremity Edema, Orthopnea, Claudication Gastrointestinal: DENIES: Abdominal pain, Black stools, Bloody stools, Constipation, Diarrhea, Nausea, Vomiting, Difficulty Swallowing, Anorexia Musculoskeletal: COMPLAINS OF: Back pain Integumentary: DENIES: Abnormal pigmentation, Nail changes, Pruritus, Rash Hematologic/lymphatic: DENIES: Bruising, Lymphadenopathy Neurologic: DENIES: Abnormal gait, Headache, Localized weakness, Paresthesias, Seizures, Speech Problems, Tremor, Poor Balance Psychiatric: DENIES: Anxiety, Confusion, Mood changes, Depression, Hallucinations, Agitation, Suicidal Ideation, Homicidal Ideation, Delusions Past Family Social History Allergies: Coded Allergies: Seafood (Verified Allergy, Severe, 04/10/16) Past Medical History None Past Surgical History Left knee arthroscopic surgery Reported Medications Advil prn Reported Meds & Active Scripts Active No Active Prescriptions or Reported Medications Family History Cancer in both sides of the family, includes colon CA, liver CA, prostatic CA, throat CA. Social History [place], works with his son, drinks and smokes only on week ends. Physical Exam Vital Signs Vital Signs Date Time Temp Pulse Resp B/P Pulse Ox O2 Delivery O2 Flow Rate FiO2 04/11/16 19:27 98.0 57 20 108/61 95 04/11/16 15:09 99.7 68 18 110/62 94 04/11/16 15:00 75 04/11/16 13:27 77 04/11/16 12:06 98.4 72 16 109/63 94 04/11/16 08:19 99.1 67 16 112/67 94 04/11/16 05:34 48 04/11/16 03:28 97 04/11/16 03:00 62 15 128/79 98 Room Air 04/10/16 23:02 68 18 122/66 97 Room Air 04/10/16 21:58 98.8 70 16 131/66 98 Physical Exam Alert and cooperative, well developed gentleman, severe axial pain with sitting or standing, Neck non tender with full ROM, head atraumatic, face symmetric, speech fluent Motor 5/5 in both delt/bic/tri/IO,HF/quads, ant tib and EHL as well as gastroc when laying down, but great difficulty walking secondary to back pain. Numbness in the first 3 digits of both hands. denies S1 radicular numbness Neg staright leg testing irvin. Decreased reflexes in the right bic/tri, 2/4 in the left bic/tri, patella and ankle reflexes are decreased. Skin warm and dry Laboratory Laboratory Tests Test 04/10/16 04/10/16 04/11/16 22:16 23:14 00:15 White Blood Count 7.0 Red Blood Count 3.81 Hemoglobin 12.9 Hematocrit 37.8 Mean Corpuscular Volume 99.4 Mean Corpuscular Hemoglobin 33.9 Mean Corpuscular Hemoglobin 34.1 Concent Red Cell Distribution Width 14.7 Platelet Count 155 Mean Platelet Volume 8.9 Neutrophils (%) (Auto) 58.0 Lymphocytes (%) (Auto) 25.2 Monocytes (%) (Auto) 16.1 Eosinophils (%) (Auto) 0.4 Basophils (%) (Auto) 0.3 Neutrophils # (Auto) 4.1 Lymphocytes # (Auto) 1.8 Monocytes # (Auto) 1.1 Eosinophils # (Auto) 0.0 Basophils # (Auto) 0.0 CBC Comment DIFF FINAL Differential Comment Prothrombin Time 11.3 Prothromb Time International 1.0 Ratio Activated Partial 32.4 Thromboplast Time Blood Type O POSITIVE Antibody Screen NEGATIVE Blood Bank Comment Sodium Level 141 Potassium Level 3.6 Chloride Level 109 Carbon Dioxide Level 24.9 Anion Gap 7 Blood Urea Nitrogen 11 Creatinine 0.68 Estimat Glomerular Filtration 121 Rate Random Glucose 92 Calcium Level 7.6 Urine Color YELLOW Urine Turbidity CLEAR Urine pH 7.0 Urine Specific [place] 1.011 Urine Protein NEG Urine Glucose (UA) NEG Urine Ketones NEG Urine Occult Blood NEG Urine Nitrite NEG Urine Bilirubin NEG Urine Urobilinogen LESS THAN 2.0 Urine Leukocyte Esterase NEG Urine RBC LESS THAN 1 Urine WBC 1 Urine Squamous Epithelial <1 Cells Microscopic Urinalysis Comment CULT NOT INDICATED Result Diagram: 04/10/16221504/10/162313 Imaging Last Impressions Lumbar Spine MRI 04/11/16 0000 Signed Impressions: Service Date/Time: Monday, April 11, 2016 01:44 - CONCLUSION: Multilevel mild disc disease. Acute appearing disc protrusion/extrusion at L5-S1 as described. Chavez Bocanegra MD Cervical Spine MRI 04/11/16 0000 Signed Impressions: Service Date/Time: Monday, April 11, 2016 01:44 - CONCLUSION: No acute bony findings. Disc protrusions at multiple levels with most significant anatomic compromise at C4-5 where moderate canal stenosis is present. Chavez Bocanegra MD Thoracic Spine CT 04/10/162209 Signed Impressions: Service Date/Time: April 22:43 - CONCLUSION: No acute bony injury in the thoracic spine Chavez Bocanegra MD Lumbar Spine CT 04/10/162209 Signed Impressions: Service Date/Time: April 22:49 - CONCLUSION: No acute bony injury in the lumbosacral spine Chavez Bocanegra MD Head CT 04/10/162209 Signed Impressions: Service Date/Time: April 22:37 - CONCLUSION: Unremarkable study except for completely opacified left maxillary sinus. Ant Root MD Cervical Spine CT 04/10/162209 Signed Impressions: Service Date/Time: April 22:37 - CONCLUSION: No acute bony injury in the cervical spine Chavez Bocanegra MD Assessment and Plan Diagnosis: (1) Lumbar disc herniation Plan: Acute severe L5S1 inflammatory changes in the bone and in the disc with a herniation. The pain is bilateral but the herniation is right sided. The pain is mostly axial rather than radicular. The use of an LSO may help as well as NSAIDS. ICD Code: M51.26 (2) Cervical disc disorder with radiculopathy Plan: Paresthesias, C6/7, should improve with gabapentin. Contusion rather than herniation is thought to be the etiology of these changes. ICD Code: M50.10 (3) Intractable back pain Plan: Rehab services and pain management are ordered. ICD Code: M54.9 Cyril Parsons Apr 11, 2016 20:03
[2016-04-11] MEDS ORDERED: REMOVE OLD NICODERM (NICOTINE) PATCH TD PRN (21:00)
[2016-04-11] MEDS: GABAPENTIN 400 MG CAP PO SCH (21:42)
[2016-04-11] MEDS: DOCUSATE SODIUM 100 MG CAP PO SCH (21:42)
[2016-04-11] MEDS: MORPHINE SULFATE 15 MG CONTROLLED RELEASE TAB PO SCH (21:43)
[2016-04-12] VITALS: PULSE 51
[2016-04-12] MEDS: KETOROLAC TROMETHAMINE 30 MG/ML (IVP) VIAL IV PUSH SCH ×3 (00:04→12:44)
[2016-04-12 04:00] VITALS: PULSE 43
[2016-04-12 04:08] VITALS: BP 105/57; PULSE 50; RESP 20; TEMP 97.9; O2SAT 95
[2016-04-12 07:55] VITALS: BP 101/59; PULSE 61; RESP 18; TEMP 97.7; O2SAT 98
[2016-04-12] MEDS: GABAPENTIN 400 MG CAP PO SCH (08:06)
[2016-04-12] MEDS: DOCUSATE SODIUM 100 MG CAP PO SCH (08:07)
[2016-04-12] MEDS: SODIUM CHLORIDE 0.9% FLUSH 5 ML FLUSH FLUSH SCH (08:07)
[2016-04-12] MEDS: MORPHINE SULFATE 15 MG CONTROLLED RELEASE TAB PO SCH (08:07)
[2016-04-12] MEDS ORDERED: FOLIC ACID 1 MG TAB PO SCH (09:00)
[2016-04-12] MEDS ORDERED: THIAMINE HCL 100 MG TAB PO SCH (09:00)
[2016-04-12] MEDS ORDERED: MULTIVITAMINS/MINERALS THERAPEUTIC TAB PO SCH (09:00)
--- NOTE | 2016-04-12 09:56 | HHI.PR ---
Subjective Remarks Follow-up for lumbar disc herniation with radiculopathy. The patient reports feeling much better today. He states the medications are helping tremendously. He reports 3/10 pain while lying in bed. He has not yet attempted ambulation but plans to do so with physical therapy today. He was at least able to sit up in bed and eat breakfast this morning. Denies any distal numbness/tingling of the legs. He continues report chronic bilateral fingertip numbness. Denies urinary incontinence. He has no other medical complaints at this time. Objective Vitals Vital Signs Date Time Temp Pulse Resp B/P Pulse Ox O2 Delivery O2 Flow Rate FiO2 04/12/16 07:55 97.7 61 18 101/59 98 04/12/16 04:08 97.9 50 20 105/57 95 04/12/16 04:00 43 04/12/16 00:00 51 04/11/16 23:42 98.3 55 20 119/69 97 04/11/16 20:00 60 04/11/16 19:27 98.0 57 20 108/61 95 04/11/16 15:09 99.7 68 18 110/62 94 04/11/16 15:00 75 04/11/16 13:27 77 04/11/16 12:06 98.4 72 16 109/63 94 I/O 04/11/16 04/11/16 04/11/16 04/12/16 04/12/16 04/12/16 07:00 15:00 23:00 07:00 15:00 23:00 Intake Total 120 ml 1000 ml Output Total 1200 ml 600 ml Balance 120 ml -200 ml -600 ml Intake Oral 120 ml 1000 ml Output Urine Total 1200 ml 600 ml # Voids 1 # Bowel Movements 0 Result Diagram: 04/10/16 2216 04/10/16 2314 Imaging Last Impressions Lumbar Spine MRI 04/11/16 0000 Signed Impressions: Service Date/Time: Monday, April 11, 2016 01:44 - CONCLUSION: Multilevel mild disc disease. Acute appearing disc protrusion/extrusion at L5-S1 as described. Chavez Bocanegra MD Cervical Spine MRI 04/11/16 0000 Signed Impressions: Service Date/Time: Monday, April 11, 2016 01:44 - CONCLUSION: No acute bony findings. Disc protrusions at multiple levels with most significant anatomic compromise at C4-5 where moderate canal stenosis is present. Chavez Bocanegra MD Thoracic Spine CT 04/10/162209 Signed Impressions: Service Date/Time: April 22:43 - CONCLUSION: No acute bony injury in the thoracic spine Chavez Bocanegra MD Lumbar Spine CT 04/10/162209 Signed Impressions: Service Date/Time: April 22:49 - CONCLUSION: No acute bony injury in the lumbosacral spine Chavez Bocanegra MD Head CT 04/10/162209 Signed Impressions: Service Date/Time: April 22:37 - CONCLUSION: Unremarkable study except for completely opacified left maxillary sinus. Ant Root MD Cervical Spine CT 04/10/162209 Signed Impressions: Service Date/Time: April 22:37 - CONCLUSION: No acute bony injury in the cervical spine Chavez Bocanegra MD Objective Remarks GENERAL: Well-nourished, well-developed pleasant physically fit middle aged male patient in [facility]. SKIN: Warm and dry. No rash. HEENT: Normocephalic. Atraumatic. Pupils equal and round. No scleral icterus. No injection or drainage. Mucous membranes pink and moist. NECK: Supple. Trachea midline. CARDIOVASCULAR: Regular rate and rhythm. S1, S2 noted. No murmur appreciated. RESPIRATORY: No accessory muscle use. Clear to auscultation. Breath sounds equal bilaterally. GASTROINTESTINAL: Abdomen soft, non-tender, nondistended. Normoactive bowel sounds x4. MUSCULOSKELETAL: No obvious deformities. Extremities without clubbing, cyanosis , or edema. Positive straight leg raise bilaterally. NEUROLOGICAL: Awake and alert. No obvious cranial nerve deficits. Motor grossly within normal limits. 5/5 muscle strength in bilateral upper and lower extremities. Normal speech. PSYCHIATRIC: Appropriate mood and affect; insight and judgment normal. Medications and IVs Current Medications Medications (Trade) Dose Ordered Sig/Luis Daniel Route Start Time Stop Time Status Last Admin (NS Flush) 2 ml UNSCH PRN FLUSH 04/11/16 03:30 (NS Flush) 2 ml BID FLUSH 04/11/16 09:00 04/12/16 08:07 (Narcan Inj) 0.4 mg UNSCH PRN IV 04/11/16 03:30 (Zofran Inj) 4 mg Q6H PRN IVP 04/11/16 11:30 (Colace) 100 mg BID PO 04/11/16 21:00 04/12/16 08:07 (Milk Of Magnesia Liq) 30 ml Q12H PRN PO 04/11/16 11:30 (Tylenol) 650 mg Q6H PRN PO 04/11/16 11:30 ([place] 5-325 Mg) 1 tab Q4H PRN PO 04/11/16 11:30 ([place] 7.5-325 Mg) 1 tab Q4H PRN PO 04/11/16 11:30 04/11/16 15:30 (Dilaudid Pf Inj) 0.5 mg Q3H PRN IV 04/11/16 11:30 (Toradol Inj) 15 mg Q6HR IV PUSH 04/11/16 12:00 04/16/16 11:59 04/12/16 05:59 (Habitrol 14 Mg Patch.24 Hr) 1 patch DAILY PRN TD 04/11/16 12:00 (Folate) 1 mg DAILY PO 04/12/16 09:00 04/17/16 08:59 04/12/16 08:08 (Vitamin B1) 100 mg DAILY PO 04/12/16 09:00 04/12/16 08:06 (Theragran M Tab) 1 tab DAILY PO 04/12/16 09:00 04/17/16 08:59 04/12/16 08:07 Miscellaneous Information 1 HS PRN TD 04/11/16 21:00 (Flexeril) 10 mg Q8H PRN PO 04/11/16 13:45 04/11/16 15:30 (Neurontin) 400 mg BID PO 04/11/16 21:00 04/12/16 08:06 (Oramorph Sr) 15 mg Q12HR PO 04/11/16 21:00 04/12/16 08:07 Urinary Catheter: No Vascular Central Line Catheter: No A/P Problem List: (1) Lumbar disc herniation ICD Code: M51.26 Status: Acute (2) Intractable back pain ICD Code: M54.9 Status: Acute Assessment and Plan 56-year-old male with no significant past medical history presents after a fall Thursday04/07/16 with intractable low back pain and inability to ambulate Acute Lumbar Disc Protrusion with Radiculopathy: s/p fall with intractable pain , inability to ambulate. Following images reviewed by me: -CT thoracic/lumbar spine with no acute bony injury in the thoracic or lumbosacral spine. -MRI Cervical spine with no acute bony findings, shows disc protrusion at multiple levels with most significant anatomic compromise at C4-5 where moderate canal stenosis is present. -MRI Lumbar spine with multilevel mild disc disease; acute appearing disc protrusion/extrusion at L5-S1. -Continue pain control with [place] prn pain scale, d/c IV dilaudid -Scheduled IV Toradol 15mg q6h x5days -Flexeril 10mg q8h prn muscle spasms -Consult neurosurgery, nonsurgical, recommends TLSO brace, PT/OT -NS started on Oramorph 15mg po bid -much improved today, await PT eval Tobacco/Alcohol Use: counseled on cessation. No signs of withdrawal, only drinks 2x per week. -Nicotine patch prn. -Start on thiamine/folate/MV. DVT Prophylaxis: teds/SCDs Discussed with Dr. Osborne Discharge Planning Possible discharge later this afternoon or tomorrow after PT eval. 1600hrs: Patient re-evaluated. Continues to feel better. He was able to ambulate 110feet with physical therapy. He agrees to go home. Discharge patient to home Condition on discharge: Improved Regular Diet as tolerated Ad Monserrat activity, avoid lifting/bending/heavy lifting over 10lbs for the next 1- 2 weeks Rx written: [place] 7.5mg prn, Flexeril prn, Thiamine, Naproxen 500mg bid Follow-up with primary care physician and neurosurgery within 1 week Latha Leonard PA-C Apr 12, 2016 09:56
[2016-04-12] MEDS: ACETAMINOPHEN/HYDROcodone 325 MG/7.5 MG TAB PO PRN ×2 (10:33→14:50)
[2016-04-12 11:41] VITALS: BP 108/61; PULSE 54; RESP 18; TEMP 98.1; O2SAT 95
[2016-04-12] MEDS ORDERED: HYDR-3580 PO (14:38)
[2016-04-12] MEDS ORDERED: VITA100T2 PO (14:38)
[2016-04-12] MEDS ORDERED: CYCL1TAB29 PO (14:38)
[2016-04-12] MEDS: CYCLOBENZAPRINE HCL 10 MG TAB PO PRN (14:50)
[2016-04-12 15:00] VITALS: BP 113/59; PULSE 61; RESP 18; TEMP 97.8; O2SAT 96
[2016-04-12] MEDS ORDERED: NEUR400C PO (16:32)
[2016-04-12] MEDS ORDERED: NAPR500T PO (16:32)
--- NOTE | 2016-04-12 16:32 | HHI.DCPOC ---
Discharge Care Plan Diagnosis: (1) Intractable back pain (2) Lumbar disc herniation (3) Cervical disc disorder with radiculopathy Goals to Promote Your Health * To prevent worsening of your condition and complications * To maintain your health at the optimal level Directions to Meet Your Goals Take your medications as prescribed Follow your dietary instruction Follow activity as directed Keep your appointments as scheduled Take your immunizations and boosters as scheduled If your symptoms worsen call your PCP, if no PCP go to Urgent Care Center or Emergency Room Smoking is Dangerous to Your Health. Avoid second hand smoke Call the 24-hour hour crisis hotline for domestic abuse at Latha Leonard PA-C Apr 12, 2016 4:32 pm
== END 2016-04-12 18:55 | disposition home or self-care (01) ==
LOC: NEPC 21:56 → NEDA 04-11 03:21 → NEPHCDU 04-11 04:35
PROVIDERS: ADMIT Hospitalist; ATTEND Hospitalist
DX: M51.16 Intervertebral disc disorders with radiculopathy, lumbar region (principal); M50.10 Cervical disc disorder with radiculopathy, unspecified cervical region; M51.27 Other intervertebral disc displacement, lumbosacral region; M54.2 Cervicalgia; W01.0XXA Fall on same level from slipping, tripping and stumbling without subsequent striking against object, initial encounter; R20.0 Anesthesia of skin; Z72.0 Tobacco use
CPT/HCPCS: 70450; 72125; 72128; 72131; 72141; 72148; 80048; 81001; 85025; 85610; 85730; 86850; 86900; 86901; 96361; 96374; 96375; 96376; 97162; 99285; G0378; J1170; J1885; J2405; J7030; L0484

== ENCOUNTER 2016-04-15 02:41 | Emergency (ER) | payer OTHER ==
[~2016-04-15] VITALS: Ht 157.5 cm; Wt 65.9 kg
[~2016-04-15 02:41] MED LIST: CYCL1TAB29 PO; HYDR-3580 PO; NAPR500T PO; NEUR400C PO; VITA100T2 PO
[2016-04-15 02:48] VITALS: BP 151/67; PULSE 68; RESP 16; TEMP 98.5; O2SAT 98
[2016-04-15] MEDS ORDERED: CYCLOBENZAPRINE HCL 10 MG TAB PO ONE (03:15)
[2016-04-15] MEDS ORDERED: methylPREDNISolone SOD SUCC 125 MG/2 ML VIAL IM ONE (03:15)
--- NOTE | 2016-04-15 03:23 | PD ---
HPI Chief Complaint: Pain: Acute or Chronic Time Seen by Provider: 02:49 Travel History International Travel<30 days: No Contact w/Intl Traveler<30days: No Traveled to known affect area: No History of Present Illness HPI The patient is a 56 year old male who presents to the [facility] emergency department with a history of worsening back pain that awoke him from sound sleep prior to arrival. The patient's medical history is significant for on Thursday, April 07, 2016 slipping and falling off of a roof, landing on his buttock area. The patient was admitted to the hospital related to intractable pain and on MRI of the C-spine was noted to have disc protrusions at multiple levels with no significant anatomic compromise at C4 5 were moderate canal stenosis was present, MRI of the lumbar spine showed an acute appearing disc protrusion/extrusion at L5-S1. The patient was seen by the neurosurgeon, Dr. darrick daugherty. She recommended that he use an LSO and continue with anti- inflammatory pain medications. The patient was discharged home with a prescription for [place], Naprosyn, Flexeril, and gabapentin. The patient filled his [place], however he has not filled the other prescriptions yet. The patient reports that the pain radiates down into the right leg. The patient was discharged from the hospital 2 days ago. He denies any loss of bowel or bladder control. He denies any saddle anesthesia. He denies having any numbness or tingling to his arms or legs. The patient denies any recent fevers , cough, congestion, neck pain, chest pain, shortness of breath, abdominal pain , vomiting, diarrhea, urinary symptoms, or neurologic symptoms. 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 Medical History: Denies Significant Hx Blood Disorders: No Cancer: No Cardiovascular Problems: No Endocrine: No Genitourinary: No Immune Disorder: No Musculoskeletal: No Neurologic: No Psychiatric: No Reproductive: No Respiratory: No Tetanus Vaccination: > 5 Years Past Surgical History Narrative Surgical The patient's past surgical history is significant for a cholecystectomy, left knee arthroscopy. Appendectomy: Yes Social History Alcohol Use: Yes (OCCASIONALY ) Tobacco Use: Yes (QUIT YESTERDAY) Substance Use: No Allergies-Medications (Allergen,Severity, Reaction): Coded Allergies: Seafood (Verified Allergy, Severe, 04/10/16) Reported Meds & Prescriptions Reported Meds & Active Scripts Active Naproxen 500 Mg Tab 500 Mg PO BID Always take with food. Neurontin (Gabapentin) 400 Mg Cap 400 Mg PO BID Vitamin B-1 (Thiamine HCl) 100 Mg Tab 100 Mg PO DAILY Hydrocodone-Acetaminophen 7.5-325 mg Tab 1 Tab PO Q4H PRN Flexeril (Cyclobenzaprine HCl) 10 Mg Tab 10 Mg PO Q8H PRN Review of Systems Except as stated in HPI: all other systems reviewed are Neg General / Constitutional: No: Fever Eyes: No: Visual changes HENT: No: Headaches Cardiovascular: No: Chest Pain or Discomfort Respiratory: No: Shortness of Breath Gastrointestinal: No: Abdominal Pain Genitourinary: No: Dysuria Musculoskeletal: Positive: Myalgias, Pain (low back pain radiating into the right leg) Skin: No Rash Neurologic: No: Weakness Psychiatric: No: Depression Endocrine: No: Polydipsia Hematologic/Lymphatic: No: Easy Bruising Physical Exam Narrative General: The patient is a well-developed well-nourished male, uncomfortable appearing on arrival reporting pain all across the low back worse in the right side of the low back and radiating down to the right foot. Head and Neck exam: Head is normocephalic atraumatic. Eyes: EOMI, pupils are equal round and reactive to light. Nose: Midline septum with pink mucous membranes Mouth: Dentition unremarkable. Moist mucus membranes. Posterior oropharynx is not erythematous. No tonsillar hypertrophy. Uvula midline. Airway patent. Neck: No palpable lymphadenopathy. No nuchal rigidity. No thyromegaly. Cardiovascular: Regular rate and rhythm without murmurs, gallops, or rubs. Lungs: Clear to auscultation bilaterally. No wheezes, rhonchi, or rales. Abdomen: Soft, without tenderness to palpation in all 4 quadrants of the abdomen. No guarding, rebound, or rigidity. Normal bowel sounds are audible. Extremities: No clubbing, cyanosis, or edema. 2+ pulses in all 4 extremities. Back: No spinous process tenderness to palpation. No costovertebral angle tenderness to palpation. The patient has paraspinal muscle tenderness on palpation along the right lumbar paraspinal muscles. There is some spasm noted. There is no ecchymosis or erythema. The patient has a positive straight leg raise on the right. Neurologic Exam: Cranial nerves 2-12 were intact on exam. Strength is 5/5 in all 4 extremities. No sensory deficits noted. Skin Exam: No rash noted. Intact skin that is warm and dry. Data Data Last Documented VS Vital Signs Date Time Temp Pulse Resp B/P Pulse Ox O2 Delivery O2 Flow Rate FiO2 04/15/16 02:48 98.5 68 16 151/67 98 Orders Methylprednisolone So Succ Inj (Solumedr (04/15/16 03:15) Cyclobenzaprine (Flexeril) (04/15/16 03:15) MDM Medical Decision Making Medical Screen Exam Complete: Yes Emergency Medical Condition: Yes Medical Record Reviewed: Yes Differential Diagnosis Lumbar radiculopathy, versus muscle spasm Narrative Course During the course of the patients emergency department visit, the patients history, examination, and differential diagnosis were reviewed with the patient. The patient's electronic medical record was reviewed. The patient was discharged home on multiple medications, however he has yet to fill most of the medications for pain except for the [place]. The patient was encouraged to get his medications filled today. The patient was provided Solu-Medrol 125 mg IM, Flexeril 10 mg by mouth 1. The patient reports that he will be taking a cab home, therefore narcotic medications were held at this time due to my concern of over sedation. The patient is resting comfortably and feels better, is alert and in no distress. The patients results and examination findings were discussed with the patient. The repeat examination is unremarkable and benign. The history, exam, diagnostic testing, and current condition do not suggest any significant pathology to warrant further testing, continued ED treatment, admission, or surgical evaluation at this point. The vital signs have been stable. The patient does not have uncontrollable pain, intractable vomiting, or other significant symptoms. The patient's condition is stable and appropriate for discharge. The patient will pursue further outpatient evaluation with a primary care physician or other designated or consulting physician as indicated in the discharge instructions. The patient expressed understanding and was agreeable with this plan. Diagnosis Primary Impression: Lumbar radiculopathy, right Referrals: Neurosurgeon 1 week Primary Care Physician 2 days Additional Instructions: The patient is instructed regarding the importance of getting the Flexeril and Naprosyn prescriptions that were previously prescribed along with the gabapentin today. Disposition: 01 DISCHARGE HOME Condition: Stable Nita Sunshine MD Apr 15, 2016 03:23
[2016-04-15 05:54] VITALS: BP 143/78
== END 2016-04-15 06:01 | disposition home or self-care (01) ==
LOC: NEPE 02:41
DX: M54.16 Radiculopathy, lumbar region (principal); Z87.891 Personal history of nicotine dependence
CPT/HCPCS: 96372; 99283; J2930